=== PATIENT | male | born 1985 | race Caucasian/White ===

== ENCOUNTER 2024-08-11 18:37 | Emergency (ER) | payer SELFPAY ==
[2024-08-11] MEDS ORDERED: Lidocaine 1% (PF) 30 ML VIAL ONE (19:05)
[2024-08-11] MEDS ORDERED: Bacitracin 1 PK ONE (19:28)
[2024-08-11] MEDS ORDERED: Ibuprofen 800 MG TAB ONE (19:51)
[2024-08-11] MEDS ORDERED: HYDROcodone/Acetaminophen 10/325 mg Tablet ONE (19:51)
== END 2024-08-11 20:25 | disposition home or self-care (01) ==
LOC: MADERS 18:37
DX: S61.216A Laceration without foreign body of right little finger without damage to nail, initial encounter (principal); F17.210 Nicotine dependence, cigarettes, uncomplicated; W25.XXXA Contact with sharp glass, initial encounter
CPT/HCPCS: 12002; 99282